=== PATIENT | female | born 1980 | race American Indian/Alaskan Native ===

== ENCOUNTER 2017-06-30 11:14 | Emergency (ER) | payer SELFPAY ==
[2017-06-30 11:21] VITALS: BP 114/76
[2017-06-30] MEDS ORDERED: TORADOL IM ONE (13:43)
--- NOTE | 2017-06-30 13:45 | Emergency Department Report ---
HPI - General Chief Complaint: Extremity Injury, Upper Time Seen by Provider: 06/30/17 13:07 - HPI HPI: Patient is a 36-year-old female presents to ED complaining of left wrist swelling and pain 2 days. Patient states yesterday while she was in her home she slipped and caught her fall with her hands. Patient states she did not hit her head or had any loss of consciousness with the slit. She states that her left wrist began hurting late last night and today. Patient states some swelling in her current on her left wrist and she decided to come in and get it looked at She denies any fevers/chills/nausea/headache/visual disturbances/dizziness/ chest pain/shortness of breath or any other problems ED Past Medical Hx - Past Medical History Previous Medical History?: No - Surgical History Past Surgical History?: Yes Additional Surgical History: - Medications Home Medications: Home Medications Medication Instructions Recorded Confirmed Last Taken Type Cyclobenzaprine [Flexeril] 10 mg PO TID PRN #20 tablet 06/30/17 Unknown Rx Ibuprofen [Motrin] 800 mg PO Q8HR PRN #30 tablet 06/30/17 Unknown Rx ED Review of Systems ROS: Stated complaint: POSS LT HAND FRACTURE/SWOLLEN Other details as noted in HPI Constitutional: denies: chills, fever Eyes: denies: eye pain, eye discharge, vision change ENT: denies: ear pain, throat pain Respiratory: denies: cough, shortness of breath, wheezing Cardiovascular: denies: chest pain, palpitations Endocrine: no symptoms reported Gastrointestinal: denies: abdominal pain, nausea, diarrhea Genitourinary: denies: urgency, dysuria, discharge Musculoskeletal: arthralgia, myalgia. denies: back pain, joint swelling Skin: denies: rash, lesions, pruritus Neurological: denies: headache, weakness, numbness, paresthesias, confusion Psychiatric: denies: anxiety, depression Hematological/Lymphatic: denies: easy bleeding, easy bruising Physical Exam - Physical Exam Vital Signs: Vital Signs 06/30/17 06/30/17 11:17 12:43 Temperature 98.5 F Pulse Rate 67 Respiratory 18 18 Rate Blood Pressure 114/76 O2 Sat by Pulse 98 99 Oximetry Physical Exam: GENERAL: Alert and oriented x3, no apparent distress, Normal Gait, atraumatic. HEAD: Head is normocephalic and a-traumatic. NECK: Supple. Non edematous, No carotid bruits. No lymphadenopathy or thyromegaly. No C-spine tenderness LUNGS: Symetrical with respiration, No wheezing, no rales or crackles, CTAB. HEART: S1, S2 present, regular rate and rhythm without murmur, no rubs, no gallops. Non tender to palpation BACK: Full range of motion, no spinal tenderness, nontender to palpation. EXTREMITIES/MUSCULOSKELETAL: No cyanosis, clubbing, rash, lesions or edema. Full ROM bilaterally. UE Pulses 2+ bilaterally. UE 5+ strength bilaterally, tenderness to palpation of the left wrist. Left wrist non-swollen nonerythematous. Full range of motion of the wrist bilaterally NEUROLOGIC: The patient is cooperative with no focal neurologic deficits. Normal speech. Normal sensation in bilateral upper and lower extremities, No loss of sensation, SKIN: Warm and dry, No lesions, No ulceration or induration present. ED Course Vital Signs 06/30/17 06/30/17 11:17 12:43 Temperature 98.5 F Pulse Rate 67 Respiratory 18 18 Rate Blood Pressure 114/76 O2 Sat by Pulse 98 99 Oximetry ED Medical Decision Making - Radiology Data Radiology results: report reviewed, image reviewed Fluoro Time In Minutes: LEFT HAND RADIOGRAPHS INDICATION: Fall, pain, edema. COMPARISON: None similar. FINDINGS: AP, lateral and oblique left hand radiographs demonstrate normal bones, joints and soft tissues. CONCLUSION: No acute radiographic abnormality. Thank you for the opportunity to participate in this patient's care. Transcribed By: RS Dictated By: GLORIA WILKINSON MD Electronically Authenticated By: GLORIA WILKINSON MD Signed Date/Time: 06/30/17 8720 - Medical Decision Making 36-year-old female presents to ED with left wrist pain ED course: Patient received Toradol for pain X-ray of the wrist shows no abnormalities. Discussed this findings with the patient Discussed patient to apply heat 3 times a day to raise Discussed with the patient that if new or worsening symptoms arise to return to ED. Discussed home medication of Flexeril and Motrin and to the liver that Flexeril will make you drowsy not to take with alcohol or while driving Patient states she understands instructions given. Vital signs normalized patient is in no acute distress. Critical care attestation.: If time is entered above; I have spent that time in minutes in the direct care of this critically ill patient, excluding procedure time. ED Disposition Clinical Impression: Arthralgia of wrist, left Disposition: DC- TO HOME OR SELFCARE Is pt being admited?: No Does the pt Need Aspirin: No Condition: Stable Instructions: Wrist Injury (ED), Arthralgia (ED), Heat Pack Application (ED) Additional Instructions: Please follow up with her primary care physician Any new symptoms return to ED Prescriptions: Cyclobenzaprine [Flexeril] 10 mg PO TID PRN #20 tablet PRN Reason: Muscle Spasm Ibuprofen [Motrin] 800 mg PO Q8HR PRN #30 tablet PRN Reason: Pain Referrals: PRIMARY CARE, [Primary Care Provider] - 3-5 Days [facility] [Outside] - 3-5 Days [facility] [Outside] - 3-5 Days Forms: Work/School Release Form(ED) Time of Disposition: 14:16
--- NOTE | 2017-06-30 13:59 | XRay Report ---
LEFT HAND RADIOGRAPHS INDICATION: Fall, pain, edema. COMPARISON: None similar. FINDINGS: AP, lateral and oblique left hand radiographs demonstrate normal bones, joints and soft tissues. CONCLUSION: No acute radiographic abnormality. Thank you for the opportunity to participate in this patient's care.
== END 2017-06-30 14:22 | disposition home or self-care (01) ==
LOC: ED 11:14
DX: M25.532 Pain in left wrist (principal)
CPT/HCPCS: 73130; 96372; 99283; J1885